=== PATIENT | female | born 1985 | race Caucasian/White ===

== ENCOUNTER 2018-01-01 18:46 | Emergency (ER) | payer OTHER ==
[~2018-01-01] VITALS: Ht 162.6 cm; Wt 84.8 kg
[2018-01-01 19:16] LABS: APPEARANCE CLEAR ((CLEAR)); BILIRUBIN NEGATIVE; BLOOD LARGE; COLOR STRAW ((YELLOW)); GLUCOSE (STRIP) NEGATIVE; KETONES NEGATIVE; LEUKOCYTES NEGATIVE; NITRITE NEGATIVE; PROTEIN (STRIP) NEGATIVE; SPECIFIC GRAVITY 1.008 (1.000-1.030); UROBILINOGEN 0.2 MG/DL (0.2-1.0)
[2018-01-01 19:27] LABS: HEMOGLOBIN 13.7 G/DL (11.9-15.5); MCH 29.8 PG (29.0-34.0); MCHC 34.3 G/DL (30.0-36.0); RBC DIS.WIDTH-CV 12.1 % (11.8-14.6); WHITE BLOOD COUNT 8.8 K/uL (4.1-10.2)
[2018-01-01 19:38] LABS: BACTERIA RARE /HPF; EPITHELIAL CELLS RARE /HPF; MUCUS TRACE /LPF; RED BLOOD CELLS 0-5 /HPF (0-5); UCUL ADDED? NO; WHITE BLOOD CELLS 0-5 /HPF (0-5)
[2018-01-01 19:51] LABS: ALBUMIN 4.5 g/dL (3.2-4.8)
[2018-01-01 19:52] LABS: CHLORIDE 105 mEq/L (99-109); POTASSIUM 3.9 mEq/L (3.7-5.4); SODIUM 137 mEq/L (136-147)
[2018-01-01 19:54] LABS: GLUCOSE 128 mg/dL (70-99); TOTAL PROTEIN 7.8 g/dL (6.4-8.3)
[2018-01-01 19:56] LABS: TOTAL BILIRUBIN 0.4 mg/dL (0.0-1.0)
[2018-01-01 19:57] LABS: ALKALINE PHOSPHATASE 70 IU/L (3-129)
[2018-01-01 19:58] LABS: CREATININE 0.8 mg/dL (0.6-1.3); GFR ESTIMATE (CALCULATED) > 59 mL/min/
[2018-01-01 19:59] LABS: AST (GOT) 21 IU/L (2-34); UREA NITROGEN (BUN) 10 mg/dL (9-23)
[2018-01-01 20:01] LABS: ALT (GPT) 17 IU/L (3-49)
[2018-01-01 20:06] LABS: QUANTITATIVE HCG < 4.0 MIU/ML
[2018-01-01 20:08] LABS: PLAT.SUFFICIENCY ADEQUATE; PLATELET COUNT 326 K/uL (156-360)
[2018-01-01 22:19] VITALS: BP 130/71
== END 2018-01-01 22:21 | disposition home or self-care (01) ==
LOC: EME 18:46
DX: R10.33 Periumbilical pain (principal); R11.0 Nausea; R19.7 Diarrhea, unspecified; Z98.51 Tubal ligation status; Z90.49 Acquired absence of other specified parts of digestive tract; Z88.0 Allergy status to penicillin; Z87.891 Personal history of nicotine dependence
CPT/HCPCS: 74177; 80053; 81003; 84702; 85027; 99281; 99285; J7030